=== PATIENT | female | born 1965 | race Caucasian/White ===

== ENCOUNTER 2024-03-23 11:55 | Emergency (ER) | payer OTHER ==
[~2024-03-23] VITALS: Ht 162.6 cm; Wt 104.3 kg
[2024-03-23 12:11] VITALS: BP_SYST 140; PULSE 80; RESP 16; TEMP 97.7; O2SAT 97
[2024-03-23] MEDS: MORPHINE 4 MG INJ. 4 MG/ML VIAL IVP ONE (13:11)
[2024-03-23] MEDS: ONDANSETRON HCL 4 MG/2 ML VIAL IVP ONE (13:11)
[2024-03-23] MEDS ORDERED: TRAM50TA2 PO (13:42)
[2024-03-23 14:07] VITALS: BP_SYST 140; PULSE 80; RESP 16; TEMP 97.7; O2SAT 97
== END 2024-03-23 14:07 | disposition home or self-care (01) ==
LOC: SED 11:55
DX: S42.292A Other displaced fracture of upper end of left humerus, initial encounter for closed fracture (principal); E11.9 Type 2 diabetes mellitus without complications; I10 Essential (primary) hypertension; Z98.84 Bariatric surgery status; W22.8XXA Striking against or struck by other objects, initial encounter; Y93.89 Activity, other specified; Y92.89 Other specified places as the place of occurrence of the external cause; Y99.8 Other external cause status
CPT/HCPCS: 99284; 96374; 29105; 96375; 73030; J2405; J2270